=== PATIENT | male | born 1955 | race Hispanic/Latino ===

== ENCOUNTER 2017-06-14 08:34 | Outpatient (CLI) | payer BC ==
[2017-06-14 09:24] LABS: Alanine Aminotransferase 21 units/L (7-56); Albumin 4.2 g/dL (3.9-5); Albumin/Globulin Ratio 1.7 %; Alkaline Phosphatase 54 units/L (35-129); Anion Gap 13 mmol/L; BUN/Creatinine Ratio 18; Blood Urea Nitrogen 18 mg/dL (9-20); Calcium 9.6 mg/dL (8.4-10.2); Carbon Dioxide 30 mmol/L (22-30); Chloride 104.2 mmol/L (98-107); Cholesterol 190 mg/dL (50-199); Glucose 84 mg/dL (75-100); HDL Cholesterol 88 mg/dL (40-59); LDL Cholesterol,Direct 86 mg/dL (50-130); Potassium 4.3 mmol/L (3.6-5.0); Sodium 143 mmol/L (137-145); Total Protein 6.7 g/dL (6.3-8.2); Triglycerides 83 mg/dL (2-149)
[2017-06-14 09:36] LABS: Prostate Specific Antigen 1.64 ng/mL (0.00-4.00)
[2017-06-14 09:37] LABS: Basophils % (Auto) 1.1 % (0.0-1.8); Eosinophils % (Auto) 2.5 % (0.0-4.3); Hematocrit 46.6 % (35.5-45.6); Hemoglobin 15.8 gm/dl (11.8-15.2); Mean Corpuscular HGB Conc 34 % (32-34); Mean Corpuscular Hemoglobin 34 pg (28-32); Mean Corpuscular Volume 99 fl (84-94); Platelet Count 137 K/mm3 (140-440); Red Cell Distribution Width 13.3 % (13.2-15.2); White Blood Count 3.7 K/mm3 (4.5-11.0)
[2017-06-18 06:31] LABS: Vitamin D, 25-OH, Total 88 ng/mL (30-100)
== END 2017-06-14 08:35 | disposition home or self-care (01) ==
LOC: LAB 08:34
PROVIDERS: ATTEND Internal Medicine
DX: Z12.5 Encounter for screening for malignant neoplasm of prostate (principal); N18.3 Chronic kidney disease, stage 3 (moderate); E78.00 Pure hypercholesterolemia, unspecified; E55.9 Vitamin D deficiency, unspecified; D69.6 Thrombocytopenia, unspecified; R41.3 Other amnesia; Z79.899 Other long term (current) drug therapy
CPT/HCPCS: 36415; 80053; 80061; 82306; 82607; 82747; 83036; 84153; 84439; 84443; 85025

== ENCOUNTER 2017-08-15 12:00 | Outpatient (CLI) | payer BC ==
--- NOTE | 2017-08-16 10:30 | Cat Scan Report ---
FINAL REPORT EXAM: CT ABDOMEN PELVIS WO CON HISTORY: KIDNEY STONE TECHNIQUE: CT abdomen and pelvis performed. Images extend from diaphragm to pubic symphysis. No IV or oral contrast material administered. Coronal and sagittal reformatted images were obtained. PRIORS: None. FINDINGS: The visualized aspects of the lung bases are clear. There are multiple small nonobstructing intrarenal calculi bilaterally. There is a 3.3 cm low-density right renal mass which is likely a cyst. There is no abdominal aortic aneurysm. There is no evidence of intestinal obstruction. The appendix is not identified with certainty but there is some vague stranding around what could be a cecal diverticulum or appendiceal stump. Significance is unclear. There is mild diffuse bladder wall thickening. There is diverticulosis, mostly involving sigmoid colon. There are degenerative changes in the hips and spine. IMPRESSION: Multiple nonobstructing intrarenal calculi. No hydronephrosis or acute obstructive uropathy seen. Diverticulosis involving the sigmoid colon. There is some vague stranding seen around what could be a cecal diverticulum or appendiceal stump. The appendix is otherwise not seen, however. Correlate clinically for signs of inflammatory process such as diverticulitis or appendicitis.
== END 2017-08-15 12:01 | disposition home or self-care (01) ==
LOC: CT 12:00
PROVIDERS: ATTEND Urology
DX: N20.0 Calculus of kidney (principal); K57.30 Diverticulosis of large intestine without perforation or abscess without bleeding; M16.0 Bilateral primary osteoarthritis of hip; M47.899 Other spondylosis, site unspecified
CPT/HCPCS: 74176

== ENCOUNTER 2017-10-11 07:40 | Outpatient (CLI) | payer BC ==
--- NOTE | 2017-10-11 09:11 | Cat Scan Report ---
CT chest with contrast: Evaluate thoracic aortic aneurysm. Following IV administration of contrast transverse images are obtained through the chest with coronal and sagittal 2-D reformatted images. The diameter of the aortic root is approximately 3.5 cm. The mid ascending aorta diameter is 4.2 cm. Just proximal to arch branches the diameter is 3.6 cm and the descending aorta is 2.7 cm. The aortic rosario are smooth and no evidence of dissection. There is no obvious enlargement of the cardiac chambers. The mediastinal contour is not otherwise remarkable. The lungs are clear. Images extending into the upper abdomen demonstrates a 3 cm right renal cyst. Impression: Mid ascending aortic aneurysm.
== END 2017-10-11 07:41 | disposition home or self-care (01) ==
LOC: CT 07:40
PROVIDERS: ATTEND Internal Medicine
DX: I71.2 Thoracic aortic aneurysm, without rupture (principal); N28.1 Cyst of kidney, acquired
CPT/HCPCS: 36415; 71275; 82565; Q9967

== ENCOUNTER 2017-12-25 09:44 | Day surgery (SDC) | payer BC ==
[2017-12-25 10:25] LABS: Basophils % (Auto) 1.3 % (0.0-1.8); Eosinophils # (Auto) 0.1 K/mm3 (0.0-0.4); Eosinophils % (Auto) 2.8 % (0.0-4.3); Hematocrit 47.3 % (35.5-45.6); Hemoglobin 16.1 gm/dl (11.8-15.2); Lymphocytes % (Auto) 28.4 % (13.4-35.0); Mean Corpuscular HGB Conc 34 % (32-34); Mean Corpuscular Hemoglobin 33 pg (28-32); Mean Corpuscular Volume 98 fl (84-94); Monocytes # (Auto) 0.5 K/mm3 (0.0-0.8); Monocytes % (Auto) 12.8 % (0.0-7.3); Platelet Count 133 K/mm3 (140-440); Red Blood Count 4.84 M/mm3 (3.65-5.03); Red Cell Distribution Width 13.6 % (13.2-15.2)
[2017-12-25 10:45] LABS: INR 0.97 (0.87-1.13)
[2017-12-25 10:46] LABS: Partial Thromboplastin Time 32.7 Sec. (24.2-36.6)
[2017-12-25 11:33] LABS: BUN/Creatinine Ratio 23; Blood Urea Nitrogen 21 mg/dL (9-20); Calcium 9.5 mg/dL (8.4-10.2); Hemolysis Index 13
[2017-12-25] MEDS ORDERED: SUBLIMAZE ONE (12:41)
[2017-12-25] MEDS ORDERED: HEPARIN/NS 5000 UNIT/500ML(CATH LAB) 0 ML IR ONE (12:41)
[2017-12-25] MEDS ORDERED: VERSED ONE (12:41)
[2017-12-25] MEDS ORDERED: NACL 0.9% 500 ML 500 ML ONE (12:42)
[2017-12-25] MEDS ORDERED: XYLOCAINE 2% INFILTRATI ONE (12:42)
[2017-12-25] MEDS ORDERED: NACL 0.9% 500 ML IR ONE (12:50)
[2017-12-25] MEDS ORDERED: ANCEF/STERILE WATER 2 GM/20 ML 2 GM/20 ML SYRINGE IV ONE (12:52)
[2017-12-25 14:20] VITALS: BP 103/66
--- NOTE | 2017-12-27 15:32 | Electrophysiological Studies ---
TYPE OF PROCEDURE: Explantation of implantable loop recorder. DESCRIPTION OF PROCEDURE: The patient was brought to the cardiac catheterization lab. The patient was prepped and draped in the usual sterile fashion. Local anesthesia was obtained using 2% lidocaine. The patient was given 2 grams of Ancef intravenously prior to the procedure for surgical prophylaxis. A 1 cm incision was made in the left chest. Using blunt dissection down to the level of the loop recorder, the loop recorder was removed and the pocket was irrigated with antibiotic solution and inspected to ensure hemostasis. CLOSURE: 2-0 Vicryl and 4-0 Vicryl. The incision was protected with Steri-Strips and nonadherent dressing. COMPLICATIONS: None. ESTIMATED BLOOD LOSS: 1 mL. ASSESSMENT: Successful explantation of implantable loop recorder. PLAN: Follow up for incision check in 8 days. JOB# [id number] REBECA/JALYN
== END 2017-12-25 14:20 | disposition home or self-care (01) ==
LOC: CATHLABREC 09:44
PROVIDERS: ATTEND Internal Medicine Cardiovascular Disease
DX: Z45.2 Encounter for adjustment and management of vascular access device (principal); I71.2 Thoracic aortic aneurysm, without rupture; Z86.73 Personal history of transient ischemic attack (TIA), and cerebral infarction without residual deficits; Q21.1 Atrial septal defect; Z79.01 Long term (current) use of anticoagulants
CPT/HCPCS: 33284; 36415; 80048; 85025; 85610; 85730; J0690; J2250; J3010; J7040; J1644

== ENCOUNTER 2018-10-29 12:04 | Outpatient (CLI) | payer BC ==
--- NOTE | 2018-10-29 20:25 | Cat Scan Report ---
FINAL REPORT PROCEDURE: CT ABDOMEN WO CON TECHNIQUE: Computerized axial tomography of the abdomen was performed without intravenous contrast. This study is performed without intravascular contrast material and its sensitivity for abdominal and pelvic pathology, including neoplasms, inflammation, abscess, free fluid, thrombosis, arterial disse ction and infarction, is reduced compared with a contrast enhanced study. HISTORY: KIDNEY STONE N20.0 COMPARISON: 08/15/2017 FINDINGS: Visualized lower thorax: No significant abnormality. Liver: Normal size and attenuation. Spleen: Normal size and attenuation. Gallbladder and biliary system: Gallbladder is present. Pancreas: Normal. Adrenals: Normal. Kidneys: Several bilateral renal calculi are present. Largest in the right kidney measures 4 millimet ers. Largest in the left kidney measures 4 millimeters. No hydronephrosis bilaterally. There is a 3.3 centimeter right renal cyst. The distal ureters are not imaged. No calculi are seen within the proxi mal ureters bilaterally. No proximal ureteral dilatation is seen GI tract: There is a large volume of stool in the colon. No bowel obstruction or inflammation is seen . Lymph nodes and mesentery: Normal. Vasculature: Normal. Peritoneum: No free fluid. Musculoskeletal structures: There have been postsurgical changes of the lumbar spine. There are diffu se degenerative disc and facet arthritic changes of the lumbar spine. Other: None . IMPRESSION: Bilateral nonobstructing renal calculi. No calculi are seen within the proximal ureters. Distal urete rs are not imaged
== END 2018-10-29 12:05 | disposition home or self-care (01) ==
LOC: LAB 12:04
PROVIDERS: ATTEND Urology
DX: N20.0 Calculus of kidney (principal); M47.816 Spondylosis without myelopathy or radiculopathy, lumbar region; M19.90 Unspecified osteoarthritis, unspecified site; Z98.890 Other specified postprocedural states
CPT/HCPCS: 36415; 74150; 84153

== ENCOUNTER 2018-11-14 10:17 | Outpatient (CLI) | payer BC ==
--- NOTE | 2018-11-14 11:21 | XRay Report ---
RIGHT HIP, 2 views: History: Pain. Severe osteoarthritis is identified at the right hip. There is complete loss of the joint space superiorly. Articular surface sclerosis and subchondral cyst formation is identified. No obvious fracture, malalignment or osteonecrosis. IMPRESSION: Severe osteoarthritis.
== END 2018-11-14 10:18 | disposition home or self-care (01) ==
LOC: XRAY 10:17
PROVIDERS: ATTEND Orthopaedic Surgery
DX: M16.11 Unilateral primary osteoarthritis, right hip (principal)

== ENCOUNTER 2018-11-19 09:25 | Outpatient (CLI) | payer BC ==
--- NOTE | 2018-11-19 11:44 | XRay Report ---
XRAY LEFT SHOULDER THREE VIEWS: 11/19/18 09:25:00 CLINICAL: Pain FINDINGS: No fracture or dislocation. Mild glenohumeral joint arthritis with a small inferior osteophyte. Mild acromioclavicular joint arthritis. Normal soft tissues. IMPRESSION: Mild arthritis.
--- NOTE | 2018-11-20 00:13 | XRay Report ---
PROCEDURE: XR PELVIS 1-2V TECHNIQUE: 3 views HISTORY: PAIN COMPARISONS: None FINDINGS: The visualized pelvic ring is intact. No evidence of acute hip fracture or dislocation. Severe right hip degenerative changes with loss of the joint space, marginal spurring and subchondral cystic changes. Mild left hip degenerative changes with mild joint space narrowing and marginal spurring. IMPRESSION: Severe right hip degenerative changes. Mild left hip degenerative changes.. This document is electronically signed by Dane Martino MD., November 20 2018 12:10:35 AM ET
== END 2018-11-19 09:26 | disposition home or self-care (01) ==
LOC: XRAY 09:25
PROVIDERS: ATTEND Orthopaedic Surgery
DX: M19.012 Primary osteoarthritis, left shoulder (principal); M16.12 Unilateral primary osteoarthritis, left hip; M19.90 Unspecified osteoarthritis, unspecified site
CPT/HCPCS: 72170

== ENCOUNTER 2018-12-09 08:31 | Outpatient (CLI) | payer BC ==
[2018-12-09 10:41] LABS: Hematocrit 48.1 % (35.5-45.6); Hemoglobin 16.8 gm/dl (11.8-15.2); Mean Corpuscular HGB Conc 35 % (32-34); Mean Corpuscular Volume 96 fl (84-94); Platelet Count 172 K/mm3 (140-440); Red Blood Count 4.99 M/mm3 (3.65-5.03); Red Cell Distribution Width 13.5 % (13.2-15.2)
[2018-12-09 10:52] LABS: Alanine Aminotransferase 16 units/L (7-56); Albumin 4.3 g/dL (3.9-5); BUN/Creatinine Ratio 21; Blood Urea Nitrogen 21 mg/dL (9-20); Hemolysis Index 6; LDL Cholesterol,Direct 115 mg/dL (50-130); Uric Acid 5.2 mg/dL (3.5-7.6)
[2018-12-09 11:04] LABS: Chol/HDL Ratio 2.33 %; HDL Cholesterol 83 mg/dL (40-59)
== END 2018-12-09 08:32 | disposition home or self-care (01) ==
LOC: LAB 08:31
PROVIDERS: ATTEND Internal Medicine
DX: E79.0 Hyperuricemia without signs of inflammatory arthritis and tophaceous disease (principal); N20.0 Calculus of kidney; I63.9 Cerebral infarction, unspecified; Q21.1 Atrial septal defect; M19.90 Unspecified osteoarthritis, unspecified site
CPT/HCPCS: 36415; 80053; 80061; 82306; 82607; 83036; 84443; 84550; 85027

== ENCOUNTER 2019-03-26 08:40 | Outpatient (CLI) | payer BC ==
[2019-03-26 09:43] LABS: Blood Urea Nitrogen 21 mg/dL (9-20)
--- NOTE | 2019-03-26 11:22 | Cat Scan Report ---
CTA CHEST WITH CONTRAST INDICATION : 171.2-ANEURYSM OF AORTIC ARCH. TECHNIQUE: Axial imaging performed through the chest.Sagittal and coronal reformatted images. 3-plan e MIP reformatted images were obtained. All CT scans at this location are performed using CT dose re duction for ALARA by means of automated exposure control. Omnipaque 350 100 mL of intravenous contrast administered. COMPARISON: CTA chest report on 10/11/2017 FINDINGS: Bolus: Contrast bolus timing is adequate. Aorta: There is mild dilatation of the ascending aorta measuring a maximum of 4.2 cm in diameter. The descending thoracic aorta measures 2.5 cm at the same level. The aortic arch measures 2.6 cm. No andrea dence for significant atherosclerotic disease or dissection. Mediastinum: There is borderline to mild cardiomegaly. A device is present overlying the intra-atria l septum presumably correcting a previous ASD. There are minimal coronary artery calcifications. No p ericardial effusion. No pathologic mediastinal adenopathy. Lungs: Lungs are clear. Bones: Degenerative changes in the spine with nothing acute. Upper abdomen: Limited imaging of the upper abdomen demonstrates a 2 mm renal stone in the superior right kidney. IMPRESSION: The ascending aorta measures a maximum diameter of 4.2 cm. See above. Borderline to mild cardiomegaly. Lungs clear. Signer Name: Lobito Tate Jr, MD Signed: 03/26/2019 11:17 AM Workstation Name: [id number]
== END 2019-03-26 08:41 | disposition home or self-care (01) ==
LOC: CT 08:40
PROVIDERS: ATTEND Internal Medicine
DX: I71.2 Thoracic aortic aneurysm, without rupture (principal); M47.819 Spondylosis without myelopathy or radiculopathy, site unspecified
CPT/HCPCS: 36415; 71275; 82565; 84520; Q9967

== ENCOUNTER 2019-05-23 08:44 | Outpatient (CLI) | payer BC ==
[2019-05-23 08:57] LABS: Basophils % (Auto) 0.6 % (0.0-1.8); Eosinophils # (Auto) 0.1 K/mm3 (0.0-0.4); Eosinophils % (Auto) 3.3 % (0.0-4.3); Hematocrit 48.3 % (35.5-45.6); Hemoglobin 16.8 gm/dl (11.8-15.2); Lymphocytes # (Auto) 1.5 K/mm3 (1.2-5.4); Lymphocytes % (Auto) 38.3 % (13.4-35.0); Mean Corpuscular HGB Conc 35 % (32-34); Mean Corpuscular Volume 98 fl (84-94); Monocytes # (Auto) 0.6 K/mm3 (0.0-0.8); Monocytes % (Auto) 15.8 % (0.0-7.3); Platelet Count 147 K/mm3 (140-440); Red Blood Count 4.94 M/mm3 (3.65-5.03); Red Cell Distribution Width 13.1 % (13.2-15.2)
[2019-05-23 09:12] LABS: BUN/Creatinine Ratio 21; Blood Urea Nitrogen 23 mg/dL (9-20); Calcium 9.9 mg/dL (8.4-10.2); Hemolysis Index 15
--- NOTE | 2019-05-23 11:24 | Magnetic Resonance Report ---
MRI CERVICAL SPINE WITHOUT CONTRAST INDICATION / CLINICAL INFORMATION: M48.00) SPINAL STENOSIS, SITE UNSPECIFIED. TECHNIQUE: Multisequence, multiplanar images of the cervical spine were obtained. COMPARISON: None available. FINDINGS: CRANIOCERVICAL JUNCTION:No significant abnormality. ALIGNMENT: There is mild reversal of the cervical lordosis with minimal retrolisthesis and advanced d egenerative disc changes at C4-5 and C5-6. There is no significant scoliosis. VERTEBRAE:There is associated mild endplate edema at C4-5 and C5-6. There are also chronic endplate c hanges at C6-7 and C7-T1. VISUALIZED SPINAL CORD: No significant abnormality. [id number] ANALYSIS: C2-3: There is no significant central spinal stenosis at. However, there is left facet joint arthropa thy with mild adjacent edema and mild left neural foraminal narrowing. C3-4: The spondylosis is greater on the left with effacement of the left lateral recess and marked le ft neural foraminal narrowing. Moderate to marked foraminal narrowing is seen on the right. C4-5: The posterior spondylosis mildly deforms the ventral cord with notable effacement of the latera l recesses. Furthermore, there is marked neural foraminal narrowing, greater on the right. C5-6: The spondylosis is greater on the left with mild deformity of the left ventral cord and notable effacement of the left lateral recess. Furthermore, there is marked left neural foraminal narrowing at. Mild narrowing is seen on the right. C6-7: The disc bulge effaces the ventral subarachnoid space without significant direct cord compressi on. There is notable left uncovertebral joint arthropathy with cystic changes at. Furthermore, there is marked marked left neural foraminal narrowing. Milder narrowing is seen on the right. C7-T1: There is slight spondylosis without significant central spinal stenosis at. The facet joint hy pertrophy contributes to moderate left and mild right neural foraminal narrowing. PARASPINAL SOFT TISSUES: No significant abnormality. ADDITIONAL FINDINGS: No epidural collections are identified. IMPRESSION: 1. There are multilevel advanced degenerative changes involving the cervical spine with notable poste rior spondylosis and significant neural foraminal narrowing as detailed above. Signer Name: Akshat Stokes MD Signed: 05/23/2019 11:20 AM Workstation Name: [email or web address]
--- NOTE | 2019-05-23 11:32 | Magnetic Resonance Report ---
MRI LUMBAR SPINE WITHOUT CONTRAST INDICATION / CLINICAL INFORMATION: M48.00) SPINAL STENOSIS,SITE UNSPECIFIED. TECHNIQUE: Multisequence, multiplanar images of the lumbar spine were obtained. COMPARISON: None available. FINDINGS: ALIGNMENT: There is mild levoscoliosis of the lumbar spine with apex at L2 and multilevel advanced de generative disc changes at. Additionally, there appears be minimal anterolisthesis at L1-2 and retrol isthesis at L4-5. VERTEBRAE:There is notable degenerative endplate edema on the right at L3-4. Milder findings are seen on the left at L4-5 and T11-12. VISUALIZED SPINAL CORD: No significant abnormality. [id number] ANALYSIS: L1-2: The spondylosis mildly encroaches on the right lateral recess at. Furthermore, there is mild ri ght neural foraminal narrowing. L2-3: There is a hemilaminectomy defect at this segment at. The residual spondylosis mildly flattens the thecal sac with slight encroachment on the right lateral recess. Additionally, there is mild to m oderate right neural foraminal narrowing at. L3-4: There is also left hemilaminectomy defect at this level. The spondylosis mildly flattens the th ecal sac at. The right neural foraminal narrowing encroaches on the exiting right L3 nerve root sheat h. L4-5: There is again a left hemilaminectomy defect with relative effacement of the left lateral reces s which may reflect postsurgical fibrosis at. The left foraminal narrowing encroaches on the exiting left L4 nerve root sheath at. Mild narrowing is seen on the right. L5-S1: The disc bulge minimally flattens the ventral thecal sac without displacement of the S1 nerve root sheaths at. There is mild left facet joint hypertrophy and foraminal narrowing. PARASPINAL SOFT TISSUES: No significant abnormality. ADDITIONAL FINDINGS: The disc bulge at T12-L1 mildly flattens the thecal sac with slight encroachment on the left lateral recess. There is mild left foraminal narrowing at. On the sagittal imaging, ther e is notable left foraminal spondylosis and facet joint arthropathy which appears to mildly encroach on the exiting left T11 vertebral body. No epidural collections are identified. IMPRESSION: 1. There is mild levoscoliosis with multilevel postsurgical and advanced degenerative changes involvi ng the visualized thoracolumbar spine as detailed above. Signer Name: Akshat Stokes MD Signed: 05/23/2019 11:27 AM Workstation Name: [id number]
== END 2019-05-23 08:45 | disposition home or self-care (01) ==
LOC: MRI 08:44
PROVIDERS: ATTEND Internal Medicine
DX: M47.815 Spondylosis without myelopathy or radiculopathy, thoracolumbar region (principal); M48.061 Spinal stenosis, lumbar region without neurogenic claudication; M47.812 Spondylosis without myelopathy or radiculopathy, cervical region; M48.02 Spinal stenosis, cervical region; M43.16 Spondylolisthesis, lumbar region
CPT/HCPCS: 36415; 72141; 72148; 80048; 85025

== ENCOUNTER 2019-07-04 09:36 | Outpatient (CLI) | payer BC ==
[2019-07-04 10:41] LABS: Basophils % (Auto) 1.1 % (0.0-1.8); Eosinophils # (Auto) 0.1 K/mm3 (0.0-0.4); Eosinophils % (Auto) 2.8 % (0.0-4.3); Hematocrit 50.1 % (35.5-45.6); Hemoglobin 17.4 gm/dl (11.8-15.2); Lymphocytes # (Auto) 1.2 K/mm3 (1.2-5.4); Mean Corpuscular HGB Conc 35 % (32-34); Mean Corpuscular Volume 98 fl (84-94); Monocytes # (Auto) 0.5 K/mm3 (0.0-0.8); Monocytes % (Auto) 12.9 % (0.0-7.3); Platelet Count 160 K/mm3 (140-440); Red Blood Count 5.11 M/mm3 (3.65-5.03); Red Cell Distribution Width 13.2 % (13.2-15.2)
[2019-07-04 10:51] LABS: Alanine Aminotransferase 17 units/L (7-56); Albumin 4.7 g/dL (3.9-5); BUN/Creatinine Ratio 19; Blood Urea Nitrogen 23 mg/dL (9-20); Hemolysis Index 11
[2019-07-04 11:00] LABS: INR 4.7 (0.87-1.13)
[2019-07-04 11:07] LABS: Bilirubin,Urine Negative (Negative); Blood,Urine Negative (Negative); Color,Urine Yellow (Yellow)
[2019-07-04 11:08] LABS: Protein,Urine <15 mg/dL mg/dL (Negative); Urobilinogen,Urine < 2.0 mg/dL (<2.0)
[2019-07-04 11:09] LABS: Mucus,Urine FEW /HPF
== END 2019-07-04 09:37 | disposition home or self-care (01) ==
LOC: LAB 09:36
PROVIDERS: ATTEND Internal Medicine
DX: Z01.810 Encounter for preprocedural cardiovascular examination (principal); M10.9 Gout, unspecified; M19.90 Unspecified osteoarthritis, unspecified site
CPT/HCPCS: 36415; 80053; 81001; 85025; 85610; 85730; 87086

== ENCOUNTER 2019-07-04 10:02 | Outpatient (CLI) | payer BC ==
--- NOTE | 2019-07-04 10:38 | XRay Report ---
CHEST 2 VIEWS INDICATION: Z01.810 ENCOUNTER FOR PREPROCEDURAL CARDIOVASCULAR EXAMINATION. COMPARISON: FINDINGS: Support devices: None. Heart: Within normal limits. Lungs/pleura: No acute air space or interstitial disease. No pneumothorax. Additional findings: None. IMPRESSION: Chest x-ray within normal limits. Signer Name: Lobito Tate Jr, MD Signed: 07/04/2019 10:33 AM Workstation Name: [id number]
== END 2019-07-04 10:03 | disposition home or self-care (01) ==
LOC: XRAY 10:02
PROVIDERS: ATTEND Internal Medicine
DX: Z01.810 Encounter for preprocedural cardiovascular examination (principal); M10.9 Gout, unspecified; M19.90 Unspecified osteoarthritis, unspecified site
CPT/HCPCS: 71046

== ENCOUNTER 2019-07-09 09:54 | Outpatient (CLI) | payer BC | END 2019-07-09 09:55 | disposition home or self-care (01) | LOC: LAB 09:54 | PROVIDERS: ATTEND Internal Medicine | DX: R79.1 Abnormal coagulation profile (principal) | CPT/HCPCS: 36415; 85610; 85730 ==

== ENCOUNTER 2019-07-17 06:23 | Inpatient (IN) | payer BC ==
[~2019-07-17 06:23] MED LIST: OXYCHLOROSENE 2 GM POWDER IR ONE
[2019-07-17] MEDS ORDERED: TRANEXAMIC ACID 1,000 MG/10 ML ONE (06:35)
[2019-07-17] MEDS ORDERED: BUPIVACAINE/PF (0.25%) 2.5 MG/ML 30 ML VIAL INFILTRATI ONE ×2 (06:35→15:08)
[2019-07-17] MEDS ORDERED: POLYMYXIN B SULFATE 500,000 UNIT VIAL IV ONE ×2 (06:35→10:06)
[2019-07-17] MEDS ORDERED: KETOROLAC 30 MG/1 ML INJ ONE ×2 (06:35→15:07)
[2019-07-17] MEDS ORDERED: MORPHINE 10 MG/1 ML INJ ONE (06:35)
[2019-07-17] MEDS ORDERED: SODIUM CHLORIDE 0.9% 50 ML ONE ×2 (06:35→15:08)
[2019-07-17] MEDS ORDERED: BACITRACIN 50,000 UNIT VIAL ONE (06:36)
[2019-07-17] MEDS ORDERED: OXYCHLOROSENE 2 GM POWDER IR ONE ×2 (06:36→10:44)
[2019-07-17] MEDS ORDERED: SODIUM CHLORIDE 0.9% 100 ML ONE (07:06)
[2019-07-17] MEDS ORDERED: SODIUM CHLORIDE 0.9% 250ML 250 ML ONE (07:06)
--- NOTE | 2019-07-17 07:40 | Anesthesia Consultation ---
Anesthesia Consult and Med Hx Date of service: 07/17/19 - Airway Anesthetic Teeth Evaluation: Good ROM Head & Neck: Adequate Mental/Hyoid Distance: Adequate Mallampati Class: Class II Intubation Access Assessment: Good - Pulmonary Exam CTA: Yes - Cardiac Exam Cardiac Exam: RRR - Pre-Operative Health Status ASA Pre-Surgery Classification: ASA2 Proposed Anesthetic Plan: General (CHronic back pain - spinal stenosis, repaired PFO , basline evelin 48) - Pulmonary Hx Smoking: No Hx Asthma: No Hx Sleep Apnea: No (ARAMIS PRE SCREEN LOW RISK) - Cardiovascular System Hx Hypertension: No Hx Heart Attack/AMI: No - Central Nervous System 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
--- NOTE | 2019-07-17 07:40 | Anesthesia Day of Surgery ---
Anesthesia Day of Surgery - Day of Surgery Patient Examined: Yes Patient H&P Reviewed: Yes Patient is NPO: Yes
[2019-07-17] MEDS ORDERED: LIDOCAINE MPF (2%) 20 MG/1 ML VIAL 5 ML ONE (07:48)
[2019-07-17] MEDS ORDERED: PROPOFOL 200 MG/20 ML VIAL IV ONE (07:48)
[2019-07-17] MEDS ORDERED: fentaNYL 100 MCG/2 ML INJ ONE (07:48)
[2019-07-17] MEDS ORDERED: ceFAZolin/STERILE WATER 2 GM/20 ML SYRINGE IV NR (08:00)
[2019-07-17] MEDS ORDERED: LACTATED RINGERS 1,000 ML IV SCH ×2 (08:00→09:00)
[2019-07-17] MEDS ORDERED: VANCOMYCIN/NS 1 GM/250 ML 1 GM/250 ML BAG IV NR (08:00)
[2019-07-17] MEDS ORDERED: MIDAZOLAM 2 MG/2 ML INJ IV NR (08:00)
[2019-07-17] MEDS ORDERED: ONDANSETRON 4 MG/2 ML INJ IV PRN ×2 (08:05→22:23)
[2019-07-17] MEDS ORDERED: ePHEDrine SULFATE 50 MG/1 ML INJ ONE (08:30)
[2019-07-17] MEDS ORDERED: CITRIC ACID-SOD CITRATE 500 ML IV ONE (08:58)
[2019-07-17] MEDS ORDERED: ROCURONIUM 50 MG/5 ML INJ IV ONE (09:24)
[2019-07-17] MEDS ORDERED: BACITRACIN 50,000 UNIT VIAL IR ONE (10:06)
[2019-07-17] MEDS ORDERED: SODIUM CHLORIDE 0.9% IRRIG SOLN 2000 ML IR ONE (10:06)
[2019-07-17] MEDS ORDERED: HYDROmorphone 1 MG/1 ML INJ ONE ×2 (10:08)
[2019-07-17] MEDS ORDERED: ONDANSETRON 4 MG/2 ML INJ ONE (10:25)
[2019-07-17] MEDS ORDERED: SODIUM CHLORIDE 0.9% 200 ML ONE (10:33)
[2019-07-17] MEDS ORDERED: LACTATED RINGERS 1,000 ML ONE (10:44)
[2019-07-17] MEDS ORDERED: PROMETHAZINE 25 MG RECT SUPP PR PRN (11:08)
[2019-07-17] MEDS ORDERED: KETOROLAC 30 MG/1 ML INJ IV PRN (11:16)
[2019-07-17] MEDS ORDERED: CALCIUM CARBONATE 500 MG TAB CHEW PO PRN (11:28)
[2019-07-17] MEDS: HYDROmorphone 1 MG/1 ML INJ IV PRN ×2 (11:52→12:15)
--- NOTE | 2019-07-17 15:10 | XRay Report ---
AP PELVIS INDICATION: POSTOP TOTAL HIP. COMPARISON: 11/19/2018 IMPRESSION: Total right hip arthroplasty has been performed. The hardware appears well applied. The re is no evidence for fracture. Normal articulation at the prosthetic hip. The pelvis is intact. Soft tissue gas surrounding the right hip is consistent with recent surgery. Signer Name: Lobito Tate Jr, MD Signed: 07/17/2019 3:06 PM Workstation Name: [id number]
--- NOTE | 2019-07-17 16:31 | Operative Report ---
AGE: 64. SEX: Male. PREOPERATIVE DIAGNOSES: 1. Severe advanced osteoarthritis, right hip joint. 2. Stiff right hip joint. POSTOPERATIVE DIAGNOSES: 1. Severe advanced osteoarthritis, right hip joint. 2. Stiff right hip joint. PROCEDURES PERFORMED: 1. Right total hip replacement. 2. Partial synovectomy, right hip joint. COMPLICATIONS: None. BLOOD LOSS: Approximately 300 mL. SURGEON: Rip Dominguez MD. ASSISTANTS: Bartolome Mims, Operative Tech and Tee Assembly Machine Operator. IMPLANTS USED: Biomet total hip replacement, ____ multi-hole acetabular hemispherical cup 56 mm supplemented with two 6.5 mm screws, liner 36 neutral stem with Taperloc high offset type 1 taper 12 x 144 mm, head is 36+0 standard Biolox ceramic delta femoral head. BRIEF HISTORY: The patient is a 64-year-old man who had severe arthritic right hip, failed conservative treatment, opted to go for surgical intervention. Risks and benefits discussed, informed consent obtained, brought to the hospital for the above procedure. DETAILS OF THE OPERATIVE REPORT: The patient was taken to the operating room. After smooth general endotracheal anesthesia, all the bony prominences were carefully padded, placed supine on the operating table, placed on the left lateral decubitus position with the right side up ____ positioned on the hip table. Axillary roll placed. All the bony prominences carefully padded. Right hip and right lower extremity prepped and draped in sterile fashion. The patient was given 2 gram Ancef half an hour before the procedure and a gram of vancomycin 1 hour before the procedure slowly. Right hip was prepped and draped in sterile fashion. A posterolateral approach was made. Incision about 12-15 cm longitudinal incision was made. Incision was carried down deep to subcutaneous tissue. Tensor fascia was exposed. Tensor fascia incised in the interval between gluteus brooklynn and tensor fascia muscle. Hip abductors were identified and retracted. Short external rotators and posterior capsule were then tacked with 0 Ethibond sutures. They were taken off from the greater trochanter using Bovie. Hip joint identified, dislocated. Significant arthritis noticed a bare bone. Ring osteophytes present a short neck. Femoral neck osteotomy was performed about 9 mm to a centimeter above the lesser trochanter as templated preoperatively. The LTC was measured before the neck cut. It was 55. Acetabulum was then exposed. Anterior, posterior, inferior retractors placed. Pulvinar was clean. Significant synovial tissue proliferation noticed and synovectomy performed. We started reaming with 50 reamer, gradually increased the size to 55 reamer, which reamed for a good hemispherical cup. Good bleeding surface was achieved and thorough washing was performed followed by we inserted a 56 multi-hole cup supplemented with two 6.5 mm screws. Impinging osteophytes present. Anterior, posterior and inferior aspect were removed with half inch curved osteotome and rongeurs and Bovie. Once this was done, trial liner was then placed. Neutral liner was then placed. Attention was drawn on the femoral side and prepared for type 1 Taperloc stem with box osteotome, canal finder, lateralizing reamer. Femoral broaching was performed, started in about 15 degree anteverted position. We started broaching with size 4 broach, gradually increased to size 12 broach, which gave us great stability to torque testing. No movement on it. Trialing was performed with -3.5 and 0 head with a high offset as templated preoperatively. With 0 head, we had equal leg lengths and with great stability with full extension, full external rotation, full flexion in 90-degree flexed and abducted position, we could internally rotate up to 80-90 degree and 90-degree flexed and adducted position. We could internally rotate up to 80-90 degrees as well. Excellent stability, removed the trial components, thoroughly washed the hip area with antibiotic-soaked normal saline followed by normal saline. The real liner was then impacted in place and well seated, confirmed. Real stem was then inserted in about 15 degree anteverted position well, stable. Tourniquet cleaned, dried, and real Biolox ceramic delta femoral head was then inserted ____ hip again reduced. Moved through range of motion and found to be extremely stable. A short thorough washing was performed. Following that, the posterior capsule, short external rotators were tacked through drill holes made in the greater trochanter. Tensor fascia was closed with 0 Vicryl sutures interrupted. Subcutaneous tissue was closed with 0 and 2-0 Vicryl interrupted sutures. Skin was closed with Monocryl. Aquacel dressing done. Abduction pillow applied. The patient tolerated the procedure very well, shifted to recovery room in a stable condition and sponge and needle count was correct. JOB# [id number] COOKIE/JALYN
[2019-07-17] MEDS: MORPHINE 4 MG/1 ML INJ IV PRN ×2 (17:51→22:18)
[2019-07-17] MEDS: ASPIRIN 325 MG TAB PO SCH (21:16)
[2019-07-17] MEDS ORDERED: MAGNESIUM PO SCH (22:00)
[2019-07-17] MEDS ORDERED: ACETAMINOPHEN 325 MG TAB PO PRN (22:23)
[2019-07-17] MEDS ORDERED: HYDROmorphone 1 MG/1 ML INJ IV PRN (22:24)
[2019-07-17] MEDS ORDERED: SODIUM CHLORIDE 0.9% 1000 ML 1,000 ML IV SCH (23:00)
[2019-07-18] MEDS: MORPHINE 4 MG/1 ML INJ IV PRN (04:24)
--- NOTE | 2019-07-18 06:58 | Event Note ---
Date: 07/17/19 See H/p in reports R KATELYNN
--- NOTE | 2019-07-18 07:41 | History and Physical Report ---
History of Present Illness Date of examination: 07/17/19 Date of admission: 07/17/19 16:00 Chief complaint: S/p R KATELYNN History of present illness: S/p R KATELYNN Post op doing well. No complications Past History Past Medical History: arthritis Past Surgical History: total hip replacement (Rt) Social history: lives with family, full code Family history: hypertension Medications and Allergies Allergies Allergy/AdvReac Type Severity Reaction Status Date / Time No Known Allergies Allergy Verified 07/16/19 10:28 Home Medications Medication Instructions Recorded Confirmed Last Taken Type Allopurinol 100 mg PO DAILY 12/25/17 07/17/19 07/16/19 09:00 History Aspirin EC [Halfprin EC] 81 mg PO QDAY 12/25/17 07/17/19 07/10/19 09:00 History Calcium Carbonate [Tums Ultra 1 tab PO QDAY 12/25/17 07/17/19 07/16/19 09:00 History Strength] Potassium Citrate [Potassium 15 meq PO QDAY 12/25/17 07/17/19 07/16/19 09:00 History Citrate ER] Magnesium 125 mg PO BID 07/01/18 07/17/19 07/16/19 09:00 History Multivitamin [Multiple Vitamins] 1 each PO DAILY 07/01/18 07/17/19 07/16/19 09:00 History Active Meds: Active Medications Acetaminophen (Tylenol) 650 mg PO Q4H PRN PRN Reason: Pain MILD(1-3)/Fever >100.5/LYNN Acetaminophen/Hydrocodone Bitart ([place] 7.5/325) 1 each PO Q4H PRN PRN Reason: Pain, Moderate (4-6) Allopurinol (Zyloprim) 100 mg PO DAILY [facility] Aspirin (Aspirin) 325 mg PO BID [facility] Last Admin: 07/17/19 21:16 Dose: 325 mg Documented by: Calcium Carbonate/Glycine (Tums) 500 mg PO Q6H PRN PRN Reason: Indigestion Hydromorphone HCl (Dilaudid) 0.5 mg IV Q3H PRN PRN Reason: Pain , Severe (7-10) Last Admin: 07/18/19 00:11 Dose: 0.5 mg Documented by: Cefazolin Sodium 2 gm/ Sodium (Chloride) 100 mls @ 200 mls/hr IV Q8H [facility]; Protocol Stop: 07/18/19 08:29 Last Admin: 07/18/19 00:13 Dose: 200 mls/hr Documented by: Sodium Chloride (Nacl 0.9% 1000 Ml) 1,000 mls @ 75 mls/hr IV DIRECT NAEEM Stop: 07/18/19 11:00 Last Admin: 07/18/19 00:12 Dose: 75 mls/hr Documented by: Ketorolac Tromethamine (Toradol) 15 mg IV Q6H PRN PRN Reason: Pain, Mild (1-3) Miscellaneous Medication (Magnesium [Magnesium]) 125 mg PO BID NAEEM Miscellaneous Medication (Potassium Citrate [Potassium Citrate Er]) 15 meq PO QDAY NAEEM Morphine Sulfate (Morphine) 2 mg IV Q4H PRN PRN Reason: Pain, Moderate (4-6) Morphine Sulfate (Morphine) 4 mg IV Q6H PRN PRN Reason: Pain , Severe (7-10) Last Admin: 07/18/19 04:24 Dose: 4 mg Documented by: Ondansetron HCl (Zofran) 4 mg IV Q8H PRN PRN Reason: Nausea And Vomiting Promethazine HCl (Phenergan) 25 mg TN Q6H PRN PRN Reason: Nausea And Vomiting Sodium Chloride (Sodium Chloride Flush Syringe 10 Ml) 10 ml IV BID NAEEM Sodium Chloride (Sodium Chloride Flush Syringe 10 Ml) 10 ml IV PRN PRN PRN Reason: LINE FLUSH Review of Systems All systems: negative Exam - Constitutional Vitals: Temp Pulse Resp BP Pulse Ox 98.0 F 58 L 17 106/63 100 07/18/19 04:40 07/18/19 04:40 07/18/19 04:40 07/18/19 04:40 07/18/19 04:40 General appearance: Present: no acute distress, well-nourished - EENT Eyes: Present: PERRL ENT: hearing intact, clear oral mucosa - Neck Neck: Present: supple, normal ROM - Respiratory Respiratory effort: normal Respiratory: bilateral: CTA - Cardiovascular Heart rate: 78 Rhythm: regular Heart Sounds: Present: S1 & S2. Absent: rub, click - Extremities Extremities: no ischemia, pulses intact, pulses symmetrical, No edema Peripheral Pulses: within normal limits - Abdominal General gastrointestinal: Present: soft, non-tender, non-distended, normal bowel sounds Male genitourinary: Present: normal - Rectal Rectal Exam: deferred - Integumentary Integumentary: Present: clear, warm, dry - Musculoskeletal Musculoskeletal: gait normal, strength equal bilaterally - Psychiatric Psychiatric: appropriate mood/affect, intact judgment & insight - Neurologic Neurologic: CNII-XII intact, moves all extremities Results - Labs Labs: Laboratory Last Values Hemoglobin A1c 4.8 % (4-6) 07/17/19 22:39 Blood Type O NEGATIVE 07/17/19 07:05 Antibody Screen Negative 07/17/19 07:05 Assessment and Plan Advance Directives: Yes (Full code) VTE prophylaxis?: Chemical, Mechanical Plan of care discussed with patient/family: Yes - Patient Problems (1) H/O total hip arthroplasty Current Visit: Yes Status: Acute Qualifiers: Laterality: right Qualified Code(s): Z96.641 - Presence of right artificial hip joint Plan to address problem: Cont PT/OT D/c planning per Dr Ashraf (2) Gout Current Visit: Yes Status: Inactive Qualifiers: Laterality: unspecified laterality Plan to address problem: Cont Allopurinol (3) DVT prophylaxis Current Visit: Yes Status: Acute Plan to address problem: scd's and GI proph
[2019-07-18 07:42] LABS: Hematocrit 41.9 % (35.5-45.6); Hemoglobin 14.5 gm/dl (11.8-15.2)
[2019-07-18] MEDS: HYDROcodone/ACETAMINOPHEN 7.5-325MG TAB PO PRN ×2 (08:17→22:46)
--- NOTE | 2019-07-18 08:24 | Progress Note ---
Assessment and Plan Assessment and plan: --H/O total hip arthroplasty Current Visit: Yes Status: Acute Cont PT/OT D/c planning per Dr Ashraf -- Gout. Current Visit: Yes Status: Inactive Cont Allopurinol --Moderate Malnutrition/Hypoalbuminemia Nutrition suppliments and supportive care --DVT prophylaxis Current Visit: Yes Status: Acute scd's ,ASA 325 bid per ortho f/u PT/OT DC home with HHS when stable and cleared by ortho and CM History Interval history: Patient seen and examined, Medical records reviewed. Patient feels slightly better c/o some pain Vitals stable Hospitalist Physical - Constitutional Vitals: Temp Pulse Resp BP Pulse Ox 98.0 F 58 L 17 106/63 100 07/18/19 04:40 07/18/19 04:40 07/18/19 04:40 07/18/19 04:40 07/18/19 04:40 General appearance: Present: no acute distress, well-nourished - EENT Eyes: Present: PERRL, EOM intact - Neck Neck: Present: supple, normal ROM - Respiratory Respiratory effort: normal Respiratory: negative: diminished, rales, rhonchi, wheezing - Cardiovascular Rhythm: regular Heart Sounds: Present: S1 & S2 - Extremities Extremities: no ischemia, No edema - Abdominal General gastrointestinal: soft, non-tender, non-distended, normal bowel sounds - Integumentary Integumentary: Present: clear, warm - Psychiatric Psychiatric: appropriate mood/affect, cooperative - Neurologic Neurologic: moves all extremities Results - Labs CBC & Chem 7: 07/18/19 07:47 07/18/19 09:50 Labs: Laboratory Last Values Hgb 14.5 gm/dl (11.8-15.2) 07/18/19 07:02 Hct 41.9 % (35.5-45.6) 07/18/19 07:02 Hemoglobin A1c 4.8 % (4-6) 07/17/19 22:39 Blood Type O NEGATIVE 07/17/19 07:05 Antibody Screen Negative 07/17/19 07:05 Active Medications - Current Medications Current Medications: Generic Name Dose Route Start Last Admin Trade Name Freq PRN Reason Stop Dose Admin Acetaminophen 650 mg 07/17/19 22:23 Tylenol PO Q4H PRN Pain MILD(1-3)/Fever >100.5/LYNN Acetaminophen/Hydrocodone Bitart 1 each 07/17/19 11:16 07/18/19 08:17 [place] 7.5/325 PO 1 each Q4H PRN Administration Pain, Moderate (4-6) Allopurinol 100 mg 07/18/19 10:00 Zyloprim PO DAILY [facility] Aspirin 325 mg 07/17/19 22:00 07/17/19 21:16 Aspirin PO 325 mg BID NAEEM Administration Calcium Carbonate/Glycine 500 mg 07/17/19 11:28 Tums PO Q6H PRN Indigestion Hydromorphone HCl 0.5 mg 07/17/19 22:24 07/18/19 00:11 Dilaudid IV 0.5 mg Q3H PRN Administration Pain , Severe (7-10) Cefazolin Sodium 2 gm/ Sodium 100 mls @ 200 mls/hr 07/17/19 16:00 07/18/19 00:13 Chloride IV 07/18/19 08:29 200 mls/hr Q8H NAEEM Administration Protocol Sodium Chloride 1,000 mls @ 75 mls/hr 07/17/19 23:00 07/18/19 00:12 Nacl 0.9% 1000 Ml IV 07/18/19 11:00 75 mls/hr DIRECT NAEEM Administration Ketorolac Tromethamine 15 mg 07/17/19 11:16 Toradol IV Q6H PRN Pain, Mild (1-3) Miscellaneous Medication 125 mg 07/17/19 22:00 Magnesium [Magnesium] PO BID [facility] Miscellaneous Medication 15 meq 07/18/19 10:00 Potassium Citrate [Potassium Citrate Er] PO QDAY [facility] Morphine Sulfate 2 mg 07/17/19 11:08 Morphine IV Q4H PRN Pain, Moderate (4-6) Morphine Sulfate 4 mg 07/17/19 11:19 07/18/19 04:24 Morphine IV 4 mg Q6H PRN Administration Pain , Severe (7-10) Ondansetron HCl 4 mg 07/17/19 22:23 Zofran IV Q8H PRN Nausea And Vomiting Promethazine HCl 25 mg 07/17/19 11:08 Phenergan NE Q6H PRN Nausea And Vomiting Sodium Chloride 10 ml 07/18/19 10:00 Sodium Chloride Flush Syringe 10 Ml IV BID [facility] Sodium Chloride 10 ml 07/17/19 22:23 Sodium Chloride Flush Syringe 10 Ml IV PRN PRN LINE FLUSH
--- NOTE | 2019-07-18 08:35 | Post Anesthesia Evaluation ---
- Post Anesthesia Evaluation Patient Participated: Yes Airway Patent: Yes Stable Respiratory Function: Yes Nausea/Vomiting: No Temp > 96.8F: Yes Pain Manageable: Yes Adequeate Hydration: Yes Anesthesia Complications: No Block Receding Appropriately: Not Applicable Patient on Ventilator: No
[2019-07-18 08:47] LABS: BUN/Creatinine Ratio 15; Blood Urea Nitrogen 16 mg/dL (9-20); Hemolysis Index 9
[2019-07-18 09:13] LABS: Basophils % (Auto) 0.5 % (0.0-1.8); Eosinophils # (Auto) 0.1 K/mm3 (0.0-0.4); Eosinophils % (Auto) 0.6 % (0.0-4.3); Hematocrit 41.8 % (35.5-45.6); Hemoglobin 14.6 gm/dl (11.8-15.2); Lymphocytes # (Auto) 0.8 K/mm3 (1.2-5.4); Lymphocytes % (Auto) 10.6 % (13.4-35.0); Mean Corpuscular HGB Conc 35 % (32-34); Mean Corpuscular Volume 98 fl (84-94); Monocytes # (Auto) 0.9 K/mm3 (0.0-0.8); Monocytes % (Auto) 11.1 % (0.0-7.3); Platelet Count 126 K/mm3 (140-440); Red Blood Count 4.26 M/mm3 (3.65-5.03); Red Cell Distribution Width 13.4 % (13.2-15.2)
[2019-07-18] MEDS ORDERED: CALCIUM CARBONATE PO SCH (10:00)
[2019-07-18] MEDS ORDERED: POTASSIUM CITRATE 15 MEQ PO SCH (10:00)
[2019-07-18 10:45] LABS: Alanine Aminotransferase 14 units/L (7-56); Albumin 3.3 g/dL (3.9-5); BUN/Creatinine Ratio 15; Blood Urea Nitrogen 16 mg/dL (9-20); Calcium 8.7 mg/dL (8.4-10.2); Hemolysis Index 18
[2019-07-18] MEDS: ASPIRIN 325 MG TAB PO SCH ×2 (10:51→22:00)
[2019-07-18] MEDS: MORPHINE 2 MG/1 ML INJ IV PRN (10:51)
[2019-07-18] MEDS: allopurinoL 100 MG TAB PO SCH (10:52)
--- NOTE | 2019-07-18 15:30 | Progress Note ---
Subjective Date of service: 07/18/19 Interval history: pod1, patient doing fine as far as hip is concerned. pain under control dressing dry NVI doing well with PT. Hip precuatiosn reviewed. DC PLanning on ASA . KATELYNN DC instruction sheet HH and Home PT Once clear by medicine. Objective Vital signs: Vital Signs - 12hr 07/18/19 07/18/19 07/18/19 04:40 08:06 11:25 Temperature 98.0 F 98.5 F 98.6 F Pulse Rate 58 L 63 52 L Respiratory 17 18 18 Rate Blood Pressure 106/63 109/60 Blood Pressure 112/63 [Left] O2 Sat by Pulse 100 96 94 Oximetry - Labs CBC & BMP: 07/18/19 07:47 07/18/19 09:50 Labs: Abnormal lab results 07/18/19 07/18/19 07/18/19 Range/Units 07:02 07:47 09:50 MCV 98 H (84-94) fl MCH 34 H (28-32) pg MCHC 35 H (32-34) % Plt Count 126 L (140-440) K/mm3 Lymph % (Auto) 10.6 L (13.4-35.0) % [place] % (Auto) 11.1 H (0.0-7.3) % Lymph # 0.8 L (1.2-5.4) K/mm3 [place] # 0.9 H (0.0-0.8) K/mm3 Seg Neutrophils % 77.2 H (40.0-70.0) % Glucose 119 H 128 H (75-100) mg/dL Total Protein 5.5 L (6.3-8.2) g/dL Albumin 3.3 L (3.9-5) g/dL
[2019-07-19] MEDS: HYDROcodone/ACETAMINOPHEN 7.5-325MG TAB PO PRN (05:09)
[2019-07-19] MEDS: MORPHINE 2 MG/1 ML INJ IV PRN (11:22)
[2019-07-19] MEDS: allopurinoL 100 MG TAB PO SCH (11:30)
[2019-07-19] MEDS: ASPIRIN 325 MG TAB PO SCH (11:30)
--- NOTE | 2019-07-19 11:44 | Discharge Summary ---
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 HIP, S/P TOTAL RT. HIP SURGERY Primary care physician: JONATHAN MONSALVE Hospitalization Reason for admission: RT.TOTAL HIP ARTHROPLASTY Pertinent studies: xray Pelvis Procedures: s/p Total hip arthroplasty Hospital course: 64 yr old male patient was admitted,evaluated by orthopedic surgeon and underwent Total hip arthroplasty,received post op care and PT/OT Case management set up home health and home PT. Today pt is comfortable,no new complaaints,vital signs stable physical exam is unremarkable. Cleared by ortho for DC and f/u per schedule. Stable at discharge Discharge Diagnosis: --H/O total hip arthroplasty Current Visit: Yes Status: Acute Cont PT/OT D/c planning per Dr Ashraf -- Gout. Current Visit: Yes Status: Inactive Cont Allopurinol --Moderate Malnutrition/Hypoalbuminemia Nutrition suppliments and supportive care --DVT prophylaxis Current Visit: Yes Status: Acute scd's ,ASA 325 bid per ortho f/u PT/OT DC home with HHS when stable and cleared by ortho and CM Stable at discharge Disposition: DC/[place]-06 HOME UNDER HOME [facility] Time spent for discharge: 32 min Core Measure Documentation - Palliative Care Palliative Care/ Comfort Measures: Not Applicable - Core Measures Any of the following diagnoses?: none Exam - Constitutional Vitals: Temp Pulse Resp BP Pulse Ox 97.8 F 60 18 116/76 94 07/19/19 07:52 07/19/19 07:52 07/19/19 07:52 07/19/19 07:52 07/19/19 09:09 General appearance: Present: no acute distress, well-nourished - EENT Eyes: Present: PERRL, EOM intact - Neck Neck: Present: supple, normal ROM - Respiratory Respiratory effort: normal Respiratory: bilateral: diminished, negative: rales, rhonchi, wheezing - Cardiovascular Rhythm: regular Heart Sounds: Present: S1 & S2 - Extremities Extremities: no ischemia, No edema - Abdominal General gastrointestinal: Present: soft, non-tender - Integumentary Integumentary: Present: clear, warm - Musculoskeletal Musculoskeletal: strength equal bilaterally - Psychiatric Psychiatric: appropriate mood/affect, cooperative - Neurologic Neurologic: moves all extremities Plan Activity: advance as tolerated, fall precautions Diet: regular Special Instructions: physical therapy Additional Instructions: Fall precautions. If you have severe pain or swelling at the surgical site contact orthopedic surgeon Follow up with: JONATHAN MONSALVE MD [Primary Care Provider] - 7 Days JAZZMINE SWIFT MD [Staff Physician] - 7 Days Prescriptions: RX: Aspirin EC 325 mg PO BID 35 Days #70 tablet.
[2019-07-19 12:49] VITALS: BP 106/63
== END 2019-07-19 15:58 | disposition home health service (06) | DRG 470 ==
LOC: INTOOBSV 06:23 → 3A 06:23 → 3B-SURG 11:32 → OBSVTOIN 16:00 → 3A 16:00 → EEVIPCON 16:00
PROVIDERS: ADMIT Internal Medicine; ATTEND Internal Medicine
PROC: 0SR903Z Replacement of Right Hip Joint with Ceramic Synthetic Substitute, Open Approach (ICD-10-PCS; principal; 2019-07-17)
DX: M16.11 Unilateral primary osteoarthritis, right hip (principal); E44.0 Moderate protein-calorie malnutrition; I69.351 Hemiplegia and hemiparesis following cerebral infarction affecting right dominant side; M10.9 Gout, unspecified; G89.29 Other chronic pain; F41.9 Anxiety disorder, unspecified; Z82.49 Family history of ischemic heart disease and other diseases of the circulatory system; Z79.82 Long term (current) use of aspirin; Z79.899 Other long term (current) drug therapy; Z68.23 Body mass index [BMI] 23.0-23.9, adult; Z87.442 Personal history of urinary calculi
CPT/HCPCS: 36415; 72170; 80048; 80053; 83036; 85014; 85018; 85025; 86850; 86900; 86901; 88304; 88311; G0378; A4217; C1776; G0379; J0690; J1170; J1885; J2250; J2270; J2405; J2704; J3010; J3370; J7030; J7050; J7120

== ENCOUNTER 2019-07-30 11:43 | Outpatient (CLI) | payer BC ==
--- NOTE | 2019-07-30 12:56 | XRay Report ---
AP pelvis Right hip-2 views INDICATION: PRESENCE OF RIGHT ARTIFICAL HIP JOINT/HISTORY OF TOTAL HIP. COMPARISON: AP pelvis from 07/17/2019 IMPRESSION: Right total hip arthroplasty is intact without complication. Normal alignment. Mild DJD in the left hip and SI joints. No acute osseous abnormality identified. Mild subcutaneous soft tissu e swelling over the right hip. Signer Name: Javier Johnson MD Signed: 07/30/2019 12:52 PM Workstation Name: [id number]
== END 2019-07-30 11:44 | disposition home or self-care (01) ==
LOC: XRAY 11:43
PROVIDERS: ATTEND Orthopaedic Surgery
DX: M47.898 Other spondylosis, sacral and sacrococcygeal region (principal); M16.12 Unilateral primary osteoarthritis, left hip; Z96.641 Presence of right artificial hip joint
CPT/HCPCS: 72170

== ENCOUNTER 2019-11-05 10:04 | Outpatient (CLI) | payer BC ==
--- NOTE | 2019-11-05 11:11 | XRay Report ---
ABDOMEN 1 VIEW HISTORY: RENAL STONE. COMPARISON: None. FINDINGS: Lung bases are clear. Nonobstructive bowel gas pattern. No evidence of radiopaque urinary stone disease. Pelvic phleboliths. IMPRESSION: Negative abdomen. Signer Name: Marlon Poon MD Signed: 11/05/2019 11:06 AM Workstation Name: [id number]
== END 2019-11-05 10:05 | disposition home or self-care (01) ==
LOC: XRAY 10:04
PROVIDERS: ATTEND Urology
DX: I87.8 Other specified disorders of veins (principal); N20.0 Calculus of kidney
CPT/HCPCS: 36415; 74018; 84153

== ENCOUNTER 2020-03-29 10:30 | Outpatient (CLI) | payer BC ==
[2020-03-29 11:22] LABS: Blood Urea Nitrogen 26 mg/dL (9-20)
--- NOTE | 2020-03-29 13:08 | Cat Scan Report ---
CTA CHEST WITH IV CONTRAST INDICATION: Aneurysm of aortic arch. TECHNIQUE: Axial CT images were obtained through the chest after injection of IV contrast. 3 plane MIP reconstru ctions were produced. All CT scans at this location are performed using CT dose reduction for ALARA b y means of automated exposure control. COMPARISON: None available. FINDINGS: Arteries: There is unchanged mild aneurysmal dilation of the ascending aorta, measuring 4.2 cm in gre atest dimension. There is no dissection or stenosis. Lungs: No significant abnormality. Trachea and Bronchi: No significant abnormality. Heart and Pericardium: Mild coronary atherosclerotic calcifications. Probable previous atrial septal defect repair. Lymphatics: No lymphadenopathy. Additional Findings: None. Upper Abdomen: No acute findings. Skeletal Structures: No significant osseous abnormality. IMPRESSION: 1. Stable mild aneurysmal dilation of the ascending thoracic aorta, measuring 4.2 cm. Signer Name: Oscar Mina MD Signed: 03/29/2020 1:03 PM Workstation Name: [id number]
== END 2020-03-29 10:31 | disposition home or self-care (01) ==
LOC: CT 10:30
PROVIDERS: ATTEND Internal Medicine
DX: I71.2 Thoracic aortic aneurysm, without rupture (principal); I25.10 Atherosclerotic heart disease of native coronary artery without angina pectoris
CPT/HCPCS: 36415; 71275; 82565; 84520; Q9967

== ENCOUNTER 2020-12-09 09:48 | Outpatient (CLI) | payer BC ==
--- NOTE | 2020-12-09 11:48 | Magnetic Resonance Report ---
MRI CERVICAL SPINE WITHOUT CONTRAST INDICATION / CLINICAL INFORMATION: CERVICALGIA. TECHNIQUE: Multisequence, multiplanar images of the cervical spine were obtained. COMPARISON: MR scan of the cervical spine from 05/23/2019 FINDINGS: CRANIOCERVICAL JUNCTION:No significant abnormality. ALIGNMENT: Normal alignment of the vertebral bodies and articular facets; reversal of cervical lordos is; unchanged since May 2019 VERTEBRAE:Normal marrow signal and vertebral body height for age. VISUALIZED SPINAL CORD: No significant abnormality. [id number] ANALYSIS: C2-3: Mild type I endplate degenerative changes on the left side of the inferior endplate of C2; face t joint degenerative changes on the left progressed since the last MRI scan; neuroforamina normal C3-4: Disc protrusion more towards the left side displacing the dural sac; both neuroforamina are ben rowed; no change since the last MRI scan C4-5: Degenerative disc disease with the loss of disc height; disc osteophyte complex extending bilat erally more towards the right side; both neuroforamina narrowed worse on the right side; MR findings remain unchanged C5-6: Loss of disc height; disc osteophyte complex extending bilaterally more towards the left side; both neuroforamina are narrowed worse on the left side; no change C6-7: Disc osteophyte complex bilaterally; both neuroforamina are narrowed; MR findings unchanged C7-T1: Degenerative disc disease with the loss of disc height; disc osteophyte complex extending bila terally more towards the left side; bilateral facet joint degenerative changes; both neuroforamina ar e narrowed, findings remain unchanged PARASPINAL SOFT TISSUES: No significant abnormality. ADDITIONAL FINDINGS: None. IMPRESSION: Significant spondylotic changes in the cervical spine Since the last MRI scan, progression of facet joint degenerative changes on the left side at C2-C3 di sc level Spondylotic changes seen at C3-C4 level narrowing both neuroforamina, C4-C5 disc level narrowing both neuroforamina worse on the right side, C5-C6 disc level narrowing both neuroforamina are worse on th e left side and at C6-C7 disc level narrowing both neuroforamina remain unchanged. Signer Name: Nena Henao MD Signed: 12/09/2020 11:44 AM Workstation Name: [id number]
--- NOTE | 2020-12-09 12:24 | Magnetic Resonance Report ---
MRI LUMBAR SPINE WITHOUT CONTRAST INDICATION / CLINICAL INFORMATION: LOW BACK PAIN. TECHNIQUE: Multisequence, multiplanar images of the lumbar spine were obtained. COMPARISON: MR scan of the lumbar spine from 05/23/2019 FINDINGS: Lumbosacral junction L5-S1 ALIGNMENT: Mild straightening of lumbar lordosis; marked levoscoliosis entering at L2-L3 level. Nava angle 22 degrees VERTEBRAE:Normal marrow signal and vertebral body height for age. VISUALIZED SPINAL CORD: No significant abnormality. Conus ends at L1 vertebral body level [id number] ANALYSIS: T12-L1: Mild anterolisthesis; moderate facet joint degenerative changes; shallow disc protrusion exte nding laterally bilaterally with the small amount of disc material sequestering superiorly in the mid line: Neuroforamina are normal L1-2: Mild type I endplate degenerative changes on the right side with minimal height loss; moderate facet joint hypertrophic changes on the right; bulging disc; MR findings remain unchanged L2-3: Loss of disc height with type II endplate degenerative changes on the right side; trace anterol isthesis; marked facet joint degenerative changes on the right and moderate facet joint degenerative changes on the left; shallow disc protrusion towards the right neuroforamen ; MR findings remain unch anged L3-4: Type II endplate degenerative changes with height loss; Bony spur extending bilaterally more to wards the right side; moderate facet joint degenerative changes; MR findings remain unchanged L4-5: Type II endplate degenerative changes more on the left side; trace retrolistheses; laminotomy c hanges on the left; bulging disc in the right neuroforamen and bony spur in the left neuroforamen; lawson th neuroforamina are narrowed more on the left side; MR findings unchanged L5-S1: No significant abnormality. PARASPINAL SOFT TISSUES: No significant abnormality. ADDITIONAL FINDINGS: None. IMPRESSION: MR findings remain unchanged Spondylotic changes at L1-L2, L2-L3, L3-L4 and L4-L5 disc levels remain unchanged L2-L3: Facet joint degenerative changes bilaterally; shallow disc protrusion towards the right; no ch bella L3-L4: Bony spur extending bilaterally more towards the right side; moderate facet joint degenerative changes; MR findings unchanged L4-L5: Laminotomy changes on the left; bulging disc in the right neuroforamen bony spur in the left n euroforamen; MR findings unchanged Signer Name: Nena Henao MD Signed: 12/09/2020 12:19 PM Workstation Name: [id number]
== END 2020-12-09 09:49 | disposition home or self-care (01) ==
LOC: MRI 09:48
PROVIDERS: ATTEND Psychiatry & Neurology Neurology
DX: M41.86 Other forms of scoliosis, lumbar region (principal); M40.46 Postural lordosis, lumbar region; M51.36 Other intervertebral disc degeneration, lumbar region; M48.061 Spinal stenosis, lumbar region without neurogenic claudication; M40.40 Postural lordosis, site unspecified; M50.321 Other cervical disc degeneration at C4-C5 level; M48.02 Spinal stenosis, cervical region; M50.31 Other cervical disc degeneration, high cervical region; M50.33 Other cervical disc degeneration, cervicothoracic region; M48.03 Spinal stenosis, cervicothoracic region; M50.21 Other cervical disc displacement, high cervical region; M25.78 Osteophyte, vertebrae
CPT/HCPCS: 72141; 72148

== ENCOUNTER 2021-03-31 08:50 | Outpatient (CLI) | payer BC ==
[2021-03-31 09:50] LABS: Blood Urea Nitrogen 32 mg/dL (9-20)
--- NOTE | 2021-03-31 11:46 | Cat Scan Report ---
CTA CHEST WITH CONTRAST INDICATION : Thoracic aortic aneurysm. TECHNIQUE: Axial imaging performed through the chest, with contrast bolus timing set to maximize opa cification of the pulmonary arteries. Sagittal and coronal reformatted images. 3-plane MIP reformatte d images were obtained. All CT scans at this location are performed using CT dose reduction for ALAR A by means of automated exposure control. 100 mL of intravenous contrast administered. COMPARISON: 03/29/2020 CTA chest FINDINGS: Bolus: Pulmonary embolus protocol was performed. Most of the IV contrast is present within the pulmo nary arteries although there is adequate opacification of the thoracic aorta. PTE: No filling defect is present to suggest PTE. Aorta: Aneurysmal dilatation of the mid ascending aorta has increased from 4.2 cm to 4.4 cm in maximu m diameter. This measurement was obtained on coronal MIPS image 25. The aortic arch measures 2.6 cm. The descending thoracic aorta measures 2.7 cm. Mediastinum: Heart size is borderline. Mild coronary artery calcifications are again noted. No peric ardial abnormality. The thyroid gland, tracheobronchial tree and esophagus are unremarkable. No path ologic mediastinal adenopathy. Lungs: The lungs are clear with no evidence for infiltrate, interstitial disease, pleural effusion o r pneumothorax. No suspicious pulmonary lesion is detected. Bones: Degenerative changes in the spine with nothing acute. Upper abdomen: Limited imaging of the upper abdomen shows nothing acute. IMPRESSION: Mild dilatation of the ascending aorta measures 4.4 cm as opposed to 4.2 cm on the previous exam. Borderline heart size. Lungs clear. Signer Name: Lobito Tate Jr, MD Signed: 03/31/2021 11:41 AM Workstation Name: [id number]
== END 2021-03-31 08:51 | disposition home or self-care (01) ==
LOC: CT 08:50
PROVIDERS: ATTEND Internal Medicine
DX: I71.2 Thoracic aortic aneurysm, without rupture (principal); I77.810 Thoracic aortic ectasia
CPT/HCPCS: 36415; 71275; 82565; 84520; Q9967

== ENCOUNTER 2021-04-28 10:40 | Outpatient (CLI) | payer BC ==
[2021-04-28 11:00] LABS: Basophils % (Auto) 0.9 % (0.0-1.8); Eosinophils # (Auto) 0.1 K/mm3 (0.0-0.4); Eosinophils % (Auto) 3.2 % (0.0-4.3); Lymphocytes # (Auto) 1.2 K/mm3 (1.2-5.4); Lymphocytes % (Auto) 28.1 % (13.4-35.0); Mean Corpuscular HGB Conc 36 % (32-34); Mean Corpuscular Volume 98 fl (84-94); Monocytes # (Auto) 0.5 K/mm3 (0.0-0.8); Monocytes % (Auto) 12.3 % (0.0-7.3); Platelet Count 170 K/mm3 (140-440); Red Blood Count 4.97 M/mm3 (3.65-5.03); Red Cell Distribution Width 13.7 % (13.2-15.2)
[2021-04-28 11:19] LABS: Hematocrit 48.6 % (35.5-45.6); Hemoglobin 17.3 gm/dl (11.8-15.2)
[2021-04-28 11:36] LABS: Alanine Aminotransferase 18 units/L (7-56); Albumin 4.5 g/dL (3.9-5); BUN/Creatinine Ratio 27; Blood Urea Nitrogen 27 mg/dL (9-20); Calcium 10.4 mg/dL (8.4-10.2); Chol/HDL Ratio 2.22 %; HDL Cholesterol 101 mg/dL (40-59); Hemolysis Index 6; LDL Cholesterol,Direct 143 mg/dL (50-130)
== END 2021-04-28 10:41 | disposition home or self-care (01) ==
LOC: LAB 10:40
PROVIDERS: ATTEND Internal Medicine
DX: Z00.01 Encounter for general adult medical examination with abnormal findings (principal); Z13.220 Encounter for screening for lipoid disorders; Z13.29 Encounter for screening for other suspected endocrine disorder
CPT/HCPCS: 36415; 80053; 80061; 83036; 84443; 85025

== ENCOUNTER 2021-08-17 09:00 | Outpatient (CLI) | payer BC ==
[2021-08-17 09:28] LABS: Hematocrit 52.8 % (35.5-45.6); Hemoglobin 17.7 gm/dl (11.8-15.2); Mean Corpuscular HGB Conc 34 % (32-34); Mean Corpuscular Volume 98 fl (84-94); Platelet Count 153 K/mm3 (140-440); Red Cell Distribution Width 13.6 % (13.2-15.2)
[2021-08-17 09:43] LABS: BUN/Creatinine Ratio 22; Blood Urea Nitrogen 22 mg/dL (9-20); Calcium 9.8 mg/dL (8.4-10.2); Chol/HDL Ratio 2.46 %; HDL Cholesterol 96 mg/dL (40-59); Hemolysis Index 6; LDL Cholesterol,Direct 136 mg/dL (50-130)
== END 2021-08-17 09:01 | disposition home or self-care (01) ==
LOC: LAB 09:00
PROVIDERS: ATTEND Internal Medicine
DX: I63.9 Cerebral infarction, unspecified (principal); D75.1 Secondary polycythemia; E87.5 Hyperkalemia; E78.5 Hyperlipidemia, unspecified
CPT/HCPCS: 36415; 80048; 80061; 85027

== ENCOUNTER 2022-04-14 09:51 | Outpatient (CLI) | payer BC, MEDICARE ==
[2022-04-14 10:25] LABS: Blood Urea Nitrogen 23 mg/dL (9-20)
--- NOTE | 2022-04-14 14:43 | Cat Scan Report ---
CTA CHEST (AORTIC ANEURYSM) INDICATION / CLINICAL INFORMATION: I71.2 THORACIC AORTIC ANEURYSM. TECHNIQUE: Axial CT images were obtained through the chest after injection of 100 cc of Omnipaque 350 IV contrast. 3 plane MIP and/or 3D reconstructions were produced. All CT scans at this location are performed using CT dose reduction for ALARA by means of automated exposure control. COMPARISON: 03/29/2021 FINDINGS: HEART: - Size: There is borderline to mild cardiomegaly. - [place] Coronary Atherosclerosis: Mild to moderate. - Pericardium: No pericardial effusion. THORACIC AORTA: - Dissection: No dissection. - Aneurysm: Mild aneurysmal dilatation of the ascending aorta appears stable measuring 4.3 cm in diam eter on image 68, series 2. The descending thoracic aorta measures 2.6 cm at the same level. The aort ic arch measures 2.6 cm. - Atherosclerosis: No significant atherosclerosis. GREAT VESSELS: No acute abnormality. No significant atherosclerosis. PULMONARY ARTERIES: No pulmonary emboli. CHEST VEINS: Single SVC of normal caliber as visualized to the right of midline. No significant abnor mality. ADDITIONAL CHEST FINDINGS: Lungs are clear with no evidence for acute or interstitial disease. No ag picious pulmonary lesion. No pleural effusion or pneumothorax. UPPER ABDOMEN: No signficant abnormality. SKELETAL SYSTEM: No significant abnormality. IMPRESSION: 1. Stable mild aneurysmal dilatation of the ascending aorta measuring 4.3 cm. 2. Borderline to mild cardiomegaly. Signer Name: Lobito Tate Jr, MD Signed: 04/14/2022 2:39 PM Workstation Name: [id number]
== END 2022-04-14 09:52 | disposition home or self-care (01) ==
LOC: CT 09:51
PROVIDERS: ATTEND Internal Medicine
DX: I71.2 Thoracic aortic aneurysm, without rupture (principal); I51.7 Cardiomegaly; I25.10 Atherosclerotic heart disease of native coronary artery without angina pectoris; I34.0 Nonrheumatic mitral (valve) insufficiency; Q21.1 Atrial septal defect; Z86.73 Personal history of transient ischemic attack (TIA), and cerebral infarction without residual deficits
CPT/HCPCS: 36415; 71275; 82565; 84520; C8929; Q9967; 93306

== ENCOUNTER 2022-05-04 09:53 | Outpatient (CLI) | payer BC, MEDICARE ==
[2022-05-04 10:16] LABS: Basophils % (Auto) 0.8 % (0.0-1.8); Eosinophils # (Auto) 0.2 K/mm3 (0.0-0.4); Eosinophils % (Auto) 4.3 % (0.0-4.3); Lymphocytes # (Auto) 1.5 K/mm3 (1.2-5.4); Lymphocytes % (Auto) 31.4 % (13.4-35.0); Mean Corpuscular HGB Conc 36 % (32-34); Mean Corpuscular Volume 97 fl (84-94); Monocytes # (Auto) 0.7 K/mm3 (0.0-0.8); Monocytes % (Auto) 15.9 % (0.0-7.3); Platelet Count 157 K/mm3 (140-440); Red Blood Count 5.04 M/mm3 (3.65-5.03); Red Cell Distribution Width 13.3 % (13.2-15.2)
[2022-05-04 10:17] LABS: Hematocrit 48.9 % (35.5-45.6); Hemoglobin 17.5 gm/dl (11.8-15.2)
[2022-05-04 10:39] LABS: % Iron Saturation 45.61 %; Alanine Aminotransferase 16 units/L (7-56); Albumin 4.8 g/dL (3.9-5); BUN/Creatinine Ratio 18; Blood Urea Nitrogen 22 mg/dL (9-20); Calcium 10.1 mg/dL (8.4-10.2); Chol/HDL Ratio 2.54 %; HDL Cholesterol 96 mg/dL (40-59); Hemolysis Index 9; Iron 130 ug/dL (49-181); LDL Cholesterol,Direct 144 mg/dL (50-130); Total Iron Binding Capacity 285 mcg/dL (250-450)
== END 2022-05-04 09:54 | disposition home or self-care (01) ==
LOC: LAB 09:53
PROVIDERS: ATTEND Internal Medicine
DX: Z00.00 Encounter for general adult medical examination without abnormal findings (principal); E78.5 Hyperlipidemia, unspecified; D75.1 Secondary polycythemia; R53.83 Other fatigue; E55.9 Vitamin D deficiency, unspecified
CPT/HCPCS: 36415; 80053; 80061; 82306; 82728; 83550; 84443; 85025

== ENCOUNTER 2022-05-30 10:22 | Outpatient (CLI) | payer BC, MEDICARE | END 2022-05-30 10:23 | disposition home or self-care (01) | LOC: LAB 10:22 | PROVIDERS: ATTEND Urology | DX: N20.0 Calculus of kidney (principal) | CPT/HCPCS: 36415; 84153; 84402 ==